=== PATIENT | female | born 1945 | race Caucasian/White ===

== ENCOUNTER 2018-08-19 08:42 | Emergency (ER) | payer OTHER ==
[~2018-08-19] VITALS: Ht 167.6 cm; Wt 59.0 kg
[~2018-08-19 08:42] MED LIST: ORPH100T PO; ZYRTEC10 M3
[2018-08-19] MEDS ORDERED: AMLODIPINE BES2.5 MG PO (09:04)
== END 2018-08-19 10:31 | disposition home or self-care (01) ==
LOC: ER 08:42
DX: M62.830 Muscle spasm of back (principal)

== ENCOUNTER 2019-10-01 09:19 | Outpatient (CLI) | payer OTHER ==
[~2019-10-01 09:19] MED LIST changes: +AMLODIPINE BES2.5 MG PO
== END 2019-10-01 15:00 | disposition home or self-care (01) ==
LOC: EDBD 09:19 → LAB 09:19
DX: D50.8 Other iron deficiency anemias (principal); I10 Essential (primary) hypertension; E78.2 Mixed hyperlipidemia; C50.912 Malignant neoplasm of unspecified site of left female breast; C79.31 Secondary malignant neoplasm of brain; D51.8 Other vitamin B12 deficiency anemias; R97.0 Elevated carcinoembryonic antigen [CEA]; E03.8 Other specified hypothyroidism; E55.9 Vitamin D deficiency, unspecified; K90.89 Other intestinal malabsorption

== ENCOUNTER 2019-10-01 16:51 | Outpatient (CLI) | payer OTHER | END 2019-10-01 17:00 | disposition home or self-care (01) | LOC: EDBD 16:51 → MAMO-SONO 16:51 | DX: I10 Essential (primary) hypertension (principal); C79.31 Secondary malignant neoplasm of brain; C50.912 Malignant neoplasm of unspecified site of left female breast; Z12.31 Encounter for screening mammogram for malignant neoplasm of breast ==

== ENCOUNTER 2019-10-08 10:19 | Outpatient (CLI) | payer OTHER | END 2019-10-09 06:27 | disposition home or self-care (01) | LOC: SONOGRAMA 10:19 → EDBD 10:19 → SONOGRAMA 10-09 06:27 | DX: N63.20 Unspecified lump in the left breast, unspecified quadrant (principal); Z12.31 Encounter for screening mammogram for malignant neoplasm of breast ==

== ENCOUNTER → 2019-11-03 08:00 | Outpatient (CLI) | payer OTHER | END | disposition home or self-care (01) | LOC: LAB 08:00 | DX: D50.8 Other iron deficiency anemias (principal); I10 Essential (primary) hypertension; C50.112 Malignant neoplasm of central portion of left female breast; C79.31 Secondary malignant neoplasm of brain; D51.8 Other vitamin B12 deficiency anemias; R97.0 Elevated carcinoembryonic antigen [CEA]; R97.8 Other abnormal tumor markers ==

== ENCOUNTER 2019-11-11 10:28 | Outpatient (CLI) | payer OTHER | END 2019-11-11 14:07 | disposition home or self-care (01) | LOC: NUCLEAR 10:28 | DX: I10 Essential (primary) hypertension (principal); C50.112 Malignant neoplasm of central portion of left female breast ==

== ENCOUNTER 2019-12-31 07:22 | Outpatient (CLI) | payer OTHER | END 2019-12-31 07:45 | disposition home or self-care (01) | LOC: EDBD 07:22 → NUCLEAR 07:22 | DX: C50.112 Malignant neoplasm of central portion of left female breast (principal); C79.31 Secondary malignant neoplasm of brain; I10 Essential (primary) hypertension | CPT/HCPCS: 78816; A9552 ==

== ENCOUNTER 2020-01-04 14:33 | Outpatient (CLI) | payer OTHER | END 2020-01-04 14:41 | disposition home or self-care (01) | LOC: LAB 14:33 | DX: D50.8 Other iron deficiency anemias (principal); I10 Essential (primary) hypertension; C50.919 Malignant neoplasm of unspecified site of unspecified female breast; R97.8 Other abnormal tumor markers; R97.0 Elevated carcinoembryonic antigen [CEA]; C50.112 Malignant neoplasm of central portion of left female breast; C79.31 Secondary malignant neoplasm of brain ==

== ENCOUNTER 2020-01-12 09:55 | Outpatient (CLI) | payer OTHER | END 2020-01-12 10:48 | disposition home or self-care (01) | LOC: NUCLEAR 09:55 → EDBD 10:00 → NUCLEAR 10:48 | DX: M81.0 Age-related osteoporosis without current pathological fracture (principal); C50.112 Malignant neoplasm of central portion of left female breast; C79.31 Secondary malignant neoplasm of brain; I10 Essential (primary) hypertension ==

== ENCOUNTER 2020-01-26 06:00 | Day surgery (SDC) | payer OTHER ==
[~2020-01-26] VITALS: Ht 167.6 cm; Wt 53.1 kg
[~2020-01-26 06:00] MED LIST changes: +AMLODIPINE BESYL5 MG PO; +EXEMESTANE25 MG PO; +METFORMIN HCL500 M3 PO; +ULTRAM50 MG
== END 2020-01-27 11:48 | disposition home or self-care (01) ==
LOC: CIR.AMB 06:00 → SURG 07:00 → EDBD 07:45 → EDSTATUS 07:45 → SURG 07:45 → O/R 14:47 → SURH 14:47 → CIR.AMB 01-27 11:48 → O/R 01-27 12:41 → SURH 01-27 12:41
DX: C50.012 Malignant neoplasm of nipple and areola, left female breast (principal)

== ENCOUNTER → 2020-03-22 | Day surgery (SDC) | payer OTHER | END | disposition home or self-care (01) | LOC: ADM 02-26 11:30 → CIR.AMB 03-01 07:00 | DX: C50.112 Malignant neoplasm of central portion of left female breast (principal) | CPT/HCPCS: 36561; C1751 ==

== ENCOUNTER → 2020-04-04 08:19 | Outpatient (CLI) | payer OTHER | END | disposition home or self-care (01) | LOC: LAB 08:19 | DX: C50.112 Malignant neoplasm of central portion of left female breast (principal); I10 Essential (primary) hypertension ==

== ENCOUNTER 2020-04-22 08:43 | Outpatient (CLI) | payer OTHER | END 2020-04-22 15:00 | disposition home or self-care (01) | LOC: LAB 08:43 | DX: D50.8 Other iron deficiency anemias (principal); I10 Essential (primary) hypertension; C50.112 Malignant neoplasm of central portion of left female breast; C79.31 Secondary malignant neoplasm of brain; E11.9 Type 2 diabetes mellitus without complications ==

== ENCOUNTER 2020-05-03 09:01 | Outpatient (CLI) | payer OTHER | END 2020-05-03 09:25 | disposition home or self-care (01) | LOC: LAB 09:01 | PROVIDERS: ATTEND Internal Medicine Hematology & Oncology | DX: C50.112 Malignant neoplasm of central portion of left female breast (principal); C79.31 Secondary malignant neoplasm of brain; D50.8 Other iron deficiency anemias ==

== ENCOUNTER → 2020-05-23 13:49 | Outpatient (CLI) | payer OTHER | END | disposition home or self-care (01) | LOC: LAB 13:49 | PROVIDERS: ATTEND Internal Medicine Hematology & Oncology | DX: D50.8 Other iron deficiency anemias (principal); I10 Essential (primary) hypertension; C50.112 Malignant neoplasm of central portion of left female breast; C79.31 Secondary malignant neoplasm of brain; E11.9 Type 2 diabetes mellitus without complications ==

== ENCOUNTER 2020-06-06 10:14 | Outpatient (CLI) | payer OTHER | END 2020-06-06 13:03 | disposition home or self-care (01) | LOC: LAB 10:14 | PROVIDERS: ATTEND Internal Medicine Hematology & Oncology | DX: D50.8 Other iron deficiency anemias (principal); I10 Essential (primary) hypertension; C50.112 Malignant neoplasm of central portion of left female breast; C79.31 Secondary malignant neoplasm of brain ==

== ENCOUNTER 2020-06-23 11:08 | Outpatient (CLI) | payer OTHER | END 2020-06-23 14:09 | disposition home or self-care (01) | LOC: LAB 11:08 | PROVIDERS: ATTEND Internal Medicine Hematology & Oncology | DX: D50.8 Other iron deficiency anemias (principal); I10 Essential (primary) hypertension; C50.112 Malignant neoplasm of central portion of left female breast; C79.31 Secondary malignant neoplasm of brain; E11.9 Type 2 diabetes mellitus without complications ==

== ENCOUNTER → 2020-07-15 10:09 | Outpatient (CLI) | payer OTHER | END | disposition home or self-care (01) | LOC: LAB 10:09 | PROVIDERS: ATTEND Internal Medicine Hematology & Oncology | DX: C50.812 Malignant neoplasm of overlapping sites of left female breast (principal) ==

== ENCOUNTER 2020-08-04 08:33 | Outpatient (CLI) | payer OTHER | END 2020-08-04 08:42 | disposition home or self-care (01) | LOC: LAB 08:33 | PROVIDERS: ATTEND Internal Medicine Hematology & Oncology | DX: C50.812 Malignant neoplasm of overlapping sites of left female breast (principal); I10 Essential (primary) hypertension; R97.0 Elevated carcinoembryonic antigen [CEA]; R97.8 Other abnormal tumor markers ==

== ENCOUNTER 2020-08-11 09:23 | Outpatient (CLI) | payer OTHER | END 2020-08-11 09:37 | disposition home or self-care (01) | LOC: MRI 09:23 | PROVIDERS: ATTEND Internal Medicine Hematology & Oncology | DX: C50.112 Malignant neoplasm of central portion of left female breast (principal); C79.31 Secondary malignant neoplasm of brain; I10 Essential (primary) hypertension; E11.9 Type 2 diabetes mellitus without complications; D70.1 Agranulocytosis secondary to cancer chemotherapy | CPT/HCPCS: 70552 ==

== ENCOUNTER → 2020-08-22 10:19 | Outpatient (CLI) | payer OTHER | END | disposition home or self-care (01) | LOC: LAB 10:19 | PROVIDERS: ATTEND Internal Medicine Hematology & Oncology | DX: D50.8 Other iron deficiency anemias (principal); C50.112 Malignant neoplasm of central portion of left female breast; C79.31 Secondary malignant neoplasm of brain; I10 Essential (primary) hypertension; E11.9 Type 2 diabetes mellitus without complications; D70.1 Agranulocytosis secondary to cancer chemotherapy ==

== ENCOUNTER 2020-09-14 13:58 | Outpatient (CLI) | payer OTHER | END 2020-09-14 15:00 | disposition home or self-care (01) | LOC: LAB 13:58 | PROVIDERS: ATTEND Internal Medicine Hematology & Oncology | DX: D50.8 Other iron deficiency anemias (principal); I10 Essential (primary) hypertension; C50.112 Malignant neoplasm of central portion of left female breast; C79.31 Secondary malignant neoplasm of brain; E11.9 Type 2 diabetes mellitus without complications; D70.1 Agranulocytosis secondary to cancer chemotherapy ==

== ENCOUNTER 2020-09-28 09:36 | Outpatient (CLI) | payer OTHER | END 2020-09-28 09:44 | disposition home or self-care (01) | LOC: LAB 09:36 | PROVIDERS: ATTEND Internal Medicine Hematology & Oncology | DX: D50.8 Other iron deficiency anemias (principal); C50.112 Malignant neoplasm of central portion of left female breast; C79.31 Secondary malignant neoplasm of brain; I10 Essential (primary) hypertension; E11.9 Type 2 diabetes mellitus without complications; D70.1 Agranulocytosis secondary to cancer chemotherapy; R74.02 Elevation of levels of lactic acid dehydrogenase [LDH]; K76.89 Other specified diseases of liver ==

== ENCOUNTER → 2020-10-20 09:49 | Outpatient (CLI) | payer OTHER | END | disposition home or self-care (01) | LOC: LAB 09:49 | PROVIDERS: ATTEND Internal Medicine Hematology & Oncology | DX: D50.8 Other iron deficiency anemias (principal); C50.112 Malignant neoplasm of central portion of left female breast; C79.31 Secondary malignant neoplasm of brain; I10 Essential (primary) hypertension; E11.9 Type 2 diabetes mellitus without complications; D70.1 Agranulocytosis secondary to cancer chemotherapy; R74.02 Elevation of levels of lactic acid dehydrogenase [LDH]; K76.89 Other specified diseases of liver ==

== ENCOUNTER → 2020-11-23 10:22 | Outpatient (CLI) | payer OTHER | END | disposition home or self-care (01) | LOC: LAB 11-21 08:27 → EDBD 10:22 | PROVIDERS: ATTEND Internal Medicine Hematology & Oncology | DX: D50.8 Other iron deficiency anemias (principal); I10 Essential (primary) hypertension; R74.02 Elevation of levels of lactic acid dehydrogenase [LDH]; K76.89 Other specified diseases of liver; C50.919 Malignant neoplasm of unspecified site of unspecified female breast; R97.8 Other abnormal tumor markers; R97.0 Elevated carcinoembryonic antigen [CEA]; D51.8 Other vitamin B12 deficiency anemias; C50.112 Malignant neoplasm of central portion of left female breast; C79.31 Secondary malignant neoplasm of brain; E11.9 Type 2 diabetes mellitus without complications; D70.1 Agranulocytosis secondary to cancer chemotherapy ==

== ENCOUNTER 2021-01-09 11:17 | Outpatient (CLI) | payer OTHER | END 2021-01-09 11:21 | disposition home or self-care (01) | LOC: MAMO-SONO 11:17 | PROVIDERS: ATTEND Specialist | DX: N64.59 Other signs and symptoms in breast (principal); Z85.3 Personal history of malignant neoplasm of breast ==

== ENCOUNTER 2021-02-04 08:51 | Outpatient (CLI) | payer OTHER | END 2021-02-04 09:00 | disposition home or self-care (01) | LOC: LAB 08:51 | PROVIDERS: ATTEND Internal Medicine Hematology & Oncology | DX: D50.8 Other iron deficiency anemias (principal); I10 Essential (primary) hypertension; R74.02 Elevation of levels of lactic acid dehydrogenase [LDH]; K76.89 Other specified diseases of liver; D51.8 Other vitamin B12 deficiency anemias; E03.8 Other specified hypothyroidism; C50.919 Malignant neoplasm of unspecified site of unspecified female breast; R97.8 Other abnormal tumor markers; R97.0 Elevated carcinoembryonic antigen [CEA]; C50.112 Malignant neoplasm of central portion of left female breast; C79.31 Secondary malignant neoplasm of brain; E11.9 Type 2 diabetes mellitus without complications; D70.1 Agranulocytosis secondary to cancer chemotherapy ==

== ENCOUNTER → 2021-05-24 08:48 | Outpatient (CLI) | payer OTHER | END | disposition home or self-care (01) | LOC: EDBD 08:48 → LAB 08:48 | PROVIDERS: ATTEND Internal Medicine Hematology & Oncology | DX: D50.8 Other iron deficiency anemias (principal); I10 Essential (primary) hypertension; R74.02 Elevation of levels of lactic acid dehydrogenase [LDH]; K76.89 Other specified diseases of liver; E55.9 Vitamin D deficiency, unspecified; E78.2 Mixed hyperlipidemia; E03.8 Other specified hypothyroidism; C50.919 Malignant neoplasm of unspecified site of unspecified female breast; R97.8 Other abnormal tumor markers; C50.112 Malignant neoplasm of central portion of left female breast; C79.31 Secondary malignant neoplasm of brain; E11.9 Type 2 diabetes mellitus without complications; D70.1 Agranulocytosis secondary to cancer chemotherapy ==

== ENCOUNTER 2021-08-21 09:53 | Outpatient (CLI) | payer OTHER | END 2021-08-21 15:00 | disposition home or self-care (01) | LOC: LAB 09:53 | PROVIDERS: ATTEND Internal Medicine Hematology & Oncology | DX: D50.8 Other iron deficiency anemias (principal); I10 Essential (primary) hypertension; R74.02 Elevation of levels of lactic acid dehydrogenase [LDH]; K76.89 Other specified diseases of liver; C50.919 Malignant neoplasm of unspecified site of unspecified female breast; R97.8 Other abnormal tumor markers; R97.0 Elevated carcinoembryonic antigen [CEA]; C50.112 Malignant neoplasm of central portion of left female breast; C79.31 Secondary malignant neoplasm of brain; E11.9 Type 2 diabetes mellitus without complications; D70.1 Agranulocytosis secondary to cancer chemotherapy ==

== ENCOUNTER → 2021-10-18 | Outpatient (CLI) | payer OTHER | END | disposition home or self-care (01) | LOC: NUCLEAR 08-09 13:15 → PPH VACUNA 07:00 | PROVIDERS: ATTEND Emergency Medicine Pediatric Emergency Medicine | DX: Z23 Encounter for immunization (principal) ==

== ENCOUNTER 2022-01-18 14:16 | Emergency (ER) | payer OTHER ==
[~2022-01-18] VITALS: Ht 167.6 cm; Wt 50.8 kg
== END 2022-01-18 15:54 | disposition home or self-care (01) ==
LOC: ER 14:16
DX: M06.9 Rheumatoid arthritis, unspecified (principal); I10 Essential (primary) hypertension; Z86.39 Personal history of other endocrine, nutritional and metabolic disease; Z91.02 Food additives allergy status

== ENCOUNTER 2022-04-15 15:13 | Emergency (ER) | payer OTHER ==
[~2022-04-15] VITALS: Ht 167.6 cm; Wt 48.5 kg
== END 2022-04-15 18:36 | disposition home or self-care (01) ==
LOC: ER 15:13
DX: M62.830 Muscle spasm of back (principal); Z91.041 Radiographic dye allergy status; Z91.013 Allergy to seafood; Z88.0 Allergy status to penicillin; Z88.6 Allergy status to analgesic agent

== ENCOUNTER 2022-04-25 16:38 | Inpatient (IN) | payer OTHER ==
[~2022-04-25] VITALS: Ht 152.4 cm; Wt 48.5 kg
== END 2022-05-02 17:16 | disposition home or self-care (01) | DRG 690 ==
LOC: ER 16:38 → MEDI 20:19
PROVIDERS: ADMIT Internal Medicine; ATTEND Internal Medicine
PROC: B020ZZZ Computerized Tomography (CT Scan) of Brain (ICD-10-PCS; 2022-04-25)
PROC: 4A12X4Z Monitoring of Cardiac Electrical Activity, External Approach (ICD-10-PCS; principal; 2022-04-26)
DX: N39.0 Urinary tract infection, site not specified (principal); N17.8 Other acute kidney failure; E87.1 Hypo-osmolality and hyponatremia; E86.0 Dehydration; S06.0X0A Concussion without loss of consciousness, initial encounter; S00.83XA Contusion of other part of head, initial encounter; R41.82 Altered mental status, unspecified; E13.9 Other specified diabetes mellitus without complications; I10 Essential (primary) hypertension; W10.8XXA Fall (on) (from) other stairs and steps, initial encounter; Z20.822 Contact with and (suspected) exposure to COVID-19; Z79.84 Long term (current) use of oral hypoglycemic drugs

== ENCOUNTER 2022-08-04 14:11 | Emergency (ER) | payer OTHER ==
[~2022-08-04] VITALS: Ht 165.1 cm; Wt 50.3 kg
== END 2022-08-04 18:36 | disposition home or self-care (01) ==
LOC: ER
DX: M54.31 Sciatica, right side (principal); M25.551 Pain in right hip; M51.36 Other intervertebral disc degeneration, lumbar region; M86.8X5 Other osteomyelitis, thigh; Z88.8 Allergy status to other drugs, medicaments and biological substances

== ENCOUNTER 2022-08-12 14:00 | Emergency (ER) | payer OTHER ==
[~2022-08-12] VITALS: Ht 167.6 cm; Wt 50.3 kg
== END 2022-08-12 15:16 | disposition home or self-care (01) ==
LOC: ER 14:00
DX: M54.9 Dorsalgia, unspecified (principal); Z91.041 Radiographic dye allergy status; Z88.0 Allergy status to penicillin; Z88.6 Allergy status to analgesic agent; Z91.013 Allergy to seafood; Z85.3 Personal history of malignant neoplasm of breast; Z85.841 Personal history of malignant neoplasm of brain

== ENCOUNTER 2022-12-14 16:08 | Emergency (ER) | payer OTHER ==
[~2022-12-14] VITALS: Ht 160 cm; Wt 38.6 kg
== END 2022-12-14 19:46 | disposition home or self-care (01) ==
LOC: ER 16:08
DX: R53.1 Weakness (principal); M54.50 Low back pain, unspecified; Z91.041 Radiographic dye allergy status; Z88.6 Allergy status to analgesic agent; Z91.013 Allergy to seafood; Z88.0 Allergy status to penicillin

== ENCOUNTER 2023-01-10 20:22 | Inpatient (IN) | payer OTHER ==
[~2023-01-10] VITALS: Ht 167.6 cm; Wt 38.6 kg
--- NOTE | 2023-01-10 20:48 | NUR ---
PTE ALERTA,ESTABLE Y ORIENTADA.ESTA REFIERE QUE DESDE HUANG COMENZO CON EL MALESTAR ABD
--- NOTE | 2023-01-10 20:50 | NUR ---
SE LE ORIENTA A PACIENTE SOBRE LAS ORDENES MEDICAS, REFIERE ENTENDER LAS MISMAS. SE CANALIZA Y SE LE COLOCA LOS IVF'S Y SE LE MISHA LAS MUETRAS ALFONZO LAS ORDENES MEDICAS.
--- NOTE | 2023-01-10 23:01 | NUR ---
SE RECIBE PACIENTE EN ZOE CON BARANDAS ELEVADAS POR SEGURIDAD.PTE CON VENOPUNCION PATENTE Y LUIS MIGUEL DE EDEMA BAJANDO 0.9NSS @120.PENDIENTE RESULTADOS CT.
[2023-01-11] MEDS ORDERED: GABAPENTIN300 M2 (13:34)
== END 2023-01-15 12:54 | disposition home or self-care (01) | DRG 690 ==
LOC: ER 20:22 → SURH 23:31
PROVIDERS: ADMIT Internal Medicine; ATTEND Internal Medicine
DX: N39.0 Urinary tract infection, site not specified (principal); E87.6 Hypokalemia; E11.9 Type 2 diabetes mellitus without complications; G30.8 Other Alzheimer's disease; F02.80 Dementia in other diseases classified elsewhere, unspecified severity, without behavioral disturbance, psychotic disturbance, mood disturbance, and anxiety; Z79.84 Long term (current) use of oral hypoglycemic drugs; Z79.4 Long term (current) use of insulin; Z20.822 Contact with and (suspected) exposure to COVID-19